=== PATIENT | male | born 1990 | race Caucasian/White ===

== ENCOUNTER → 2018-07-02 10:26 | Outpatient (CLI) | payer BC, SELFPAY ==
--- NOTE | 2018-07-02 10:32 | XR_ITS ---
XR chest 2V HISTORY: ITS.REASON: ASTHMA,DYSPNEA ORDERING PHYSICIAN: Eduard Lutz MD PATIENT AGE: 28 years COMPARISON: None FINDINGS: The cardiomediastinal silhouette and pulmonary vascularity are within normal limits. The lungs are clear without infiltrates, suspicious nodules, or pleural effusions. No acute bony abnormalities. There is mild lower thoracic curvature convex left IMPRESSION: Negative chest, no acute finding
== END ==
PROVIDERS: PCP Family Medicine; Visit Provider Family Medicine
DX: J45.909 Unspecified asthma, uncomplicated (principal); R06.09 Other forms of dyspnea
CPT/HCPCS: 71046

== ENCOUNTER → 2018-07-10 14:52 | Outpatient (CLI) | payer BC, SELFPAY ==
--- NOTE | 2018-07-10 | CA_ITS ---
PROCEDURE: 2-D M-mode and color Doppler study INDICATIONS FOR THE TEST: Chest pain COPD Heart Murmur+ Tobacco Smoking Palpitations Fatigue Syncope Edema Hypertension Diabetes Mellitus Rheumatic Fever SOB MIRZA+Obesity Hyperlipidemia Family History HD Additional History PATIENT INFORMATION HEIGHT: 74 WEIGHT:235 GENDER: Male B/P:110/67 2-D/M-MODE INTERPRETATION: 2-D MEASUREMENTS OBSERVED VALUES IN CMS Right Ventricular Dimension (RVDd) 2.1 Interventricular Septum (Thickness)(IVsd) 1.0 Left Ventricular Internal Dimensions(LVIDd) 4.9 Left Ventricular Posterior Wall (Thickness)(LVPWd) 0.9 Aortic Root 2.8 Aortic Cusp Separation 2.2 Left Atrial Dimensions (LAD) 3.6 2D 1. Left atrium is normal size, left ventricle is normal size, there is no concentric left ventricular hypertrophy, visually estimated ejection fraction 55% with no regional wall motion abnormality. 2. The right atrium and right ventricle are normal size and contractility. 3. The aortic valve is minimally thickened and fibrosed, aortic valve is trileaflet, there is no aortic stenosis. 4. The mitral and tricuspid valve are grossly normal. 5. The pulmonic valve is poorly present. 6. No significant pericardial effusion noted. DOPPLER INTERROGATION: Doppler interrogation of the aortic, mitral and tricuspid valve is presence of mild aortic, mild mitral and tricuspid regurgitation, tricuspid regurgitation jet velocity is inadequate for calculation of the right ventricular systolic pressure, diastolic parameters are inconclusive. CONCLUSION: 1. Normal left ventricular size, preserved left ventricular systolic function, visually estimated ejection fraction of 55% with no regional wall motion abnormality, diastolic parameters are inconclusive. 2. Mild aortic, mild mitral and tricuspid regurgitation 3. No significant pericardial effusion noted.
== END ==
PROVIDERS: PCP Family Medicine; Visit Provider Family Medicine
DX: R06.09 Other forms of dyspnea (principal); R01.1 Cardiac murmur, unspecified
CPT/HCPCS: 93306

== ENCOUNTER 2021-12-08 22:23 | Emergency (ER) | payer BC, SELFPAY ==
[2021-12-08 22:24] VITALS: BP 149/94; PULSE 76; RESP 17; TEMP 36.6; O2SAT 99; BMI 31.4
--- NOTE | 2021-12-08 22:46 | CT_ITS ---
PROCEDURE INFORMATION: Exam: CT Abdomen And Pelvis Without Contrast Exam date and time: 12/08/2021 10:49 PM Age: 31 years old Clinical indication: Abdominal pain; Flank; Left; Additional info: L flank pain, HX stone TECHNIQUE: Imaging protocol: Computed tomography of the abdomen and pelvis without contrast. Radiation optimization: All CT scans at this facility use at least one of these dose optimization techniques: automated exposure control; mA and/or kV adjustment per patient size (includes targeted exams where dose is matched to clinical indication); or iterative reconstruction. COMPARISON: [facility] abdomen pelvis wo con 08/10/2017 2:31 AM FINDINGS: Liver: No acute findings. No mass. Gallbladder and bile ducts: No acute findings, calcified stones or ductal dilation. Pancreas: No acute findings, focal abnormality or ductal dilation. Spleen: No splenomegaly or focal abnormality. Adrenal glands: Normal. No mass. Kidneys and ureters: There is a 3 mm calculus in the upper left ureter with minimal relative proximal hydroureter. Stomach and bowel: No obstruction. No mucosal thickening. Appendix: No evidence of appendicitis. Intraperitoneal space: No free air. No significant fluid collection. Vasculature: No abdominal aortic aneurysm. Lymph nodes: No pathologically enlarged lymph nodes. Urinary bladder: Unremarkable as visualized. Reproductive: Unremarkable as visualized. Bones/joints: No acute fracture. Soft tissues: Small uncomplicated fat containing right inguinal hernia. IMPRESSION: 3 mm calculus in the upper left ureter with minimal obstructive uropathy.
--- NOTE | 2021-12-08 22:49 | HMH.EDABDPAI ---
Discharge Plan Disposition Patient Disposition: Home, Self-Care Prescriptions Prescriptions: New tamsulosin [Flomax] 0.4 mg capsule 0.4 mg PO DAILY Qty: 10 0RF No Action cetirizine 10 mg tablet 10 mg PO DAILY montelukast 10 mg tablet 10 mg PO DAILY albuterol sulfate 90 mcg/actuation HFA aerosol inhaler 2 puff INHALATION Q6HP PRN (Reason: shortness of breath, wheezing) Referrals Follow up/Referrals: Araceli Sorensen APRN [Primary Care Provider] - See instructions Clinical Impressions Clinical Impression: Renal colic on left side Instructions Patient Instructions: DI for Kidney Stones Discharge ED Provider: Javier Johnson Abdominal Pain HPI General Chief Complaint: Abdominal Pain Stated Complaint: ADM PAIN POSS KIDNEY STONES Time Seen by Provider: 12/08/21 22:49 Mode of Arrival: Family Vehicle Source of Information: Patient and Medical Record Limitations: No Limitations Description of Symptoms (Recalled from ER Triage Doc. by RN): Pt c/o pain that began in L lower abd and radiated to L flank and began suddenly at 2130. He reports he has a stones in the past and it feels like this. Denies any fever, chills, or diarrhea. He does report nausea. Pt reports at this time, the pain is almost gone but I still want checked out . History of Present Illness HPI narrative: acute lt upper abd/flank tonight complaint: flank pain Onset (ago): hour(s) Consistency: intermittent Severity: moderate Radiation: L flank Related Data Home Medications Medication Instructions Recorded Confirmed albuterol sulfate 90 mcg/actuation 2 puff inhalation Q6HP PRN 12/08/21 12/08/21 aerosol inhaler shortness of breath, wheezing cetirizine 10 mg tablet 10 mg PO DAILY Allergy symptoms 12/08/21 12/08/21 montelukast 10 mg tablet 10 mg PO DAILY Allergy symptoms 12/08/21 12/08/21 Previous Rx's Medication Instructions Recorded tamsulosin 0.4 mg capsule (Flomax) 0.4 mg PO DAILY #10 caps 12/08/21 Allergies Allergy/AdvReac Type Severity Reaction Status Date / Time amoxicillin [AMOXICILLIN] Allergy Intermediate I-RASH Verified 04/01/18 00:04 minocycline [MINOCYCLINE] Allergy Intermediate I-HIVES Verified 04/01/18 00:04 cefaclor [CEFACLOR] AdvReac Mild NA-DIARRHEA Verified 04/01/18 00:04 PFSH PFS Social History Smoking Status: Never smoker alcohol intake: current 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avel in the last 8 weeks: Outside the [facility] ROS Obtained: Yes All systems reviewed & no additional complaints except as documented Physical Exam General General appearance: alert and in no apparent distress Head Head exam: normocephalic Eye Eye exam: Present PERRL and EOMI ENT ENT exam: Present mucous membranes moist Neck Neck exam: Present trachea midline Respiratory Respiratory exam: Absent respiratory distress Cardiovascular Cardiovascular exam: Present regular rate Abdominal Exam Abdominal exam: Present soft Extremities Exam Extremities exam: Present full ROM Neurological Exam Neurological exam: Present alert, oriented X3 and CN II-XII intact Psychiatric Psychiatric exam: Present normal affect Skin Skin exam: Absent rash Medical Decision Making Medical Records Medical records reviewed: Yes I reviewed the patient's medical records. Jesús Inquiry Pt receiving controlled substance: No Vital Signs: 12/08/21 22:24 Temperature 97.8 F Temperature Source Oral Pulse Rate [Right] 76 Respiratory Rate 17 Blood Pressure [Right Arm] 149/94 H Blood Pressure Mean [Right Arm] 112 02 Sat by Pulse Oximetry 99 Oxygen Delivery Method Room Air Lab Data Lab results reviewed: Yes I reviewed the patient's lab results. Lab Results 12/08/21 22:46: ESR 20 H 12/08/21 22:46: C-Reactive Protein 5.6 H, Amylase 64, Procalcitonin 0.083 12/08/21 22:46: Urine Color Brown, Urine Appearance Cloudy, Urine pH 5.5, Ur Specific [place] >= 1.030, Urine Protein 2+, Urine
[2021-12-08 22:55] LABS: Microscopic, Urine URINE MICROSCOPIC (MICROSCOPIC)
[2021-12-08 22:57] LABS: Basophils # 0.1 K/mm3 (0-0.2); Basophils % 0.9 % (0.1-2.0); Eosinophils # 0.1 K/mm3 (0.0-0.4); Eosinophils % 1.7 % (0.1-12.0); Hematocrit 43.5 % (42.0-52.0); Hemoglobin 13.8 g/dL (14.1-18.0); Lymphocytes # 2.3 K/mm3 (0.7-4.5); Lymphocytes % 30.2 % (10-50); Mean Corpuscular HGB Conc 31.7 g/dL (31.8-35.4); Mean Corpuscular Hemoglobin 30.4 pg (27.0-31.2); Mean Corpuscular Volume 95.8 fl (80-94); Mean Platelet Volume 8.5 fl (7.4-10.4); Monocytes # 0.5 K/mm3 (0.1-1.0); Monocytes % 6.8 % (1.7-9.3); Neutrophils # 4.5 K/mm3 (1.8-7.8); Neutrophils % 60.4 % (37.0-80.0); Platelet Count 225 K/mm3 (142-424); Red Blood Count 4.54 M/mm3 (4.60-6.20); Red Cell Distribution Width 13.7 % (11.5-17.5); White Blood Count 7.5 K/mm3 (4.8-10.8)
[2021-12-08 22:58] LABS: Appearance,Urine CLOUDY (Clear); Blood, Urine 3+ (Negative); Color,Urine BROWN (Yellow); Glucose,Urine (UA) Negative (Negative); Ketones,Urine Negative (Negative); Leukocyte Esterase,Urine Negative (Negative); Nitrate,Urine Negative (Negative); PH,Urine 5.5 (5.0-8.5); Protein,Urine 2+ (Negative); Specific Gravity, Urine >= 1.030 (1.005-1.030)
[2021-12-08 23:00] LABS: Bilirubin,Urine 1+ (Negative)
[2021-12-08 23:03] LABS: RBC,Urine TNTC #/hpf (0-3)
[2021-12-08 23:04] LABS: Amylase 64 U/L (30-110); Bacteria,Urine Trace /lpf
[2021-12-08 23:05] LABS: Alanine Aminotransferase 28 U/L (12-78); Albumin Level 4.5 g/dl (3.5-5.0); Albumin/Globulin Ratio 1.5 (1.1-1.8); Alkaline Phosphatase 89 U/L (38-126); Anion Gap 12.9 mEq/L (5-15); Aspartate Amino Transferase 31 U/L (17-59); Bilirubin,Total 0.3 mg/dl (0.2-1.3); Blood Urea Nitrogen 19 mg/dl (9-20); Calcium 9.5 mg/dl (8.4-10.2); Carbon Dioxide 26 mmol/L (22.0-30.0); Chloride 105 mmol/L (98-107); Creatinine Clearance Estimated 127 mL/min (50-200); Estimated Glomerular Filt Rate 64 ml/min (>60); GFR (African American) 77 ML/MIN (>60); Globulin 3.1 g/dL (1.3-3.2); Glucose 109 mg/dl (74-100); Lipase 103 U/L (23-300); Potassium 3.9 mmoL/L (3.5-5.1); Sodium 140 mmol/L (136-145); Total Protein,Serum 7.6 g/dl (6.3-8.2)
[2021-12-08 23:09] LABS: C-Reactive Protein 5.6 mg/L (0-4)
[2021-12-08 23:21] LABS: Erythrocyte Sedimentation Rate 20 mm/hr (0-15)
[2021-12-08 23:23] LABS: Procalcitonin 0.083 ng/mL (0.0-2.0)
[2021-12-08 23:56] VITALS: BP 123/78; PULSE 78; RESP 18; TEMP 36.6; O2SAT 99
== END 2021-12-09 00:08 | disposition home or self-care (01) ==
PROVIDERS: Emergency Provider Emergency Medicine; PCP Nurse Practitioner Family
DX: N20.1 Calculus of ureter (principal); Z79.899 Other long term (current) drug therapy; Z88.1 Allergy status to other antibiotic agents
CPT/HCPCS: 74176; 80053; 81001; 82150; 83690; 84145; 85025; 85651; 86140; 96365; 96375; 96376; 99284; J2405

== ENCOUNTER 2021-12-09 09:01 | Emergency (ER) | payer BC, SELFPAY ==
[2021-12-09 09:03] VITALS: BP 139/87; PULSE 67; RESP 20; TEMP 36.7; O2SAT 100; BMI 33.0
[2021-12-09 09:09] VITALS: BP 139/83; PULSE 68; O2SAT 100
[2021-12-09 09:17] VITALS: BMI 33.0
--- NOTE | 2021-12-09 09:24 | PC.NURSE ---
after medicated pt sleeping at bs
[2021-12-09 09:43] LABS: Basophils # 0.1 K/mm3 (0-0.2); Basophils % 1.2 % (0.1-2.0); Eosinophils # 0.1 K/mm3 (0.0-0.4); Eosinophils % 0.5 % (0.1-12.0); Hematocrit 43.4 % (42.0-52.0); Hemoglobin 13.7 g/dL (14.1-18.0); Lymphocytes # 1.3 K/mm3 (0.7-4.5); Lymphocytes % 14.6 % (10-50); Mean Corpuscular HGB Conc 31.6 g/dL (31.8-35.4); Mean Corpuscular Volume 98.1 fl (80-94); Mean Platelet Volume 9.1 fl (7.4-10.4); Monocytes # 0.5 K/mm3 (0.1-1.0); Monocytes % 6.2 % (1.7-9.3); Neutrophils # 6.7 K/mm3 (1.8-7.8); Neutrophils % 77.5 % (37.0-80.0); Platelet Count 223 K/mm3 (142-424); Red Blood Count 4.42 M/mm3 (4.60-6.20); Red Cell Distribution Width 13.9 % (11.5-17.5); White Blood Count 8.7 K/mm3 (4.8-10.8)
[2021-12-09 09:44] LABS: Chloride 106 mmol/L (98-107); Potassium 3.9 mmoL/L (3.5-5.1); Sodium 142 mmol/L (136-145)
[2021-12-09 09:47] LABS: Alanine Aminotransferase 29 U/L (12-78); Albumin Level 4.8 g/dl (3.5-5.0); Albumin/Globulin Ratio 1.5 (1.1-1.8); Alkaline Phosphatase 90 U/L (38-126); Anion Gap 14.9 mEq/L (5-15); Aspartate Amino Transferase 36 U/L (17-59); Bilirubin,Total 0.6 mg/dl (0.2-1.3); Blood Urea Nitrogen 18 mg/dl (9-20); Calcium 9.7 mg/dl (8.4-10.2); Carbon Dioxide 25 mmol/L (22.0-30.0); Creatinine Clearance Estimated 120 mL/min (50-200); Estimated Glomerular Filt Rate 58 ml/min (>60); GFR (African American) 71 ML/MIN (>60); Globulin 3.1 g/dL (1.3-3.2); Glucose 119 mg/dl (74-100); Total Protein,Serum 7.9 g/dl (6.3-8.2)
--- NOTE | 2021-12-09 09:52 | PC.NURSE ---
ED MD AT BEDSIDE FOR EVALUATION
--- NOTE | 2021-12-09 09:56 | HMH.EDGENADL ---
Discharge Plan Disposition Patient Disposition: Home, Self-Care Condition: Good Prescriptions Prescriptions: New oxycodone-acetaminophen [Percocet] 7.5-325 mg tablet 1 tab PO Q6H PRN (Reason: pain) Qty: 14 0RF ketorolac 10 mg tablet 10 mg PO Q6H PRN (Reason: moderate pain ) Qty: 10 0RF ondansetron 4 mg tablet,disintegrating 4 mg PO TID PRN (Reason: Nausea And Vomiting) Qty: 10 0RF No Action cetirizine 10 mg tablet 10 mg PO DAILY montelukast 10 mg tablet 10 mg PO DAILY albuterol sulfate 90 mcg/actuation HFA aerosol inhaler 2 puff INHALATION Q6HP PRN (Reason: shortness of breath, wheezing) tamsulosin [Flomax] 0.4 mg capsule 0.4 mg PO DAILY Qty: 10 0RF Referrals Follow up/Referrals: Araceli Sorensen APRN [Primary Care Provider] - See instructions Delfin Soler MD [Staff Physician] - See instructions Activity Restrictions/Add. Instructions Additional Instructions/Restrictions: Flomax as prescribed. Percocet and Toradol as needed for pain. Zofran as needed for nausea. Additional instructions for KIDNEY STONE (URETERAL CALCULUS): See Dr. Soler as soon as possible for further evaluation. Drink plenty of fluids. Strain your urine and save any stones you catch. Return immediately if you develop a fever or have uncontrollable vomiting or uncontrollable pain. Clinical Impressions Clinical Impression: Calculus, ureteral Instructions Patient Instructions: DI for Urinary Tract Infection (UTI), DI for Urinary Tract Infection in Children Discharge ED Provider: Elton Vega General Adult HPI General Chief complaint: Urogenital-Male Stated complaint: back and side pain Time Seen by Provider: 12/09/21 09:50 Mode of Arrival: Ambulatory Limitations: No Limitations Description of Symptoms (Recalled from ER Triage Doc. by RN): PT SEEN FOR KIDNEY STONE LAST NIGHT, RETURNS WITH INCREASED LEFT SIDED, FLANK AND GROIN PAIN. CHILLS AND NAUSEA. History of Present Illness HPI narrative: Patient was seen in the emergency department last night for left-sided flank pain. CT scan showed left ureteral calculus. He was discharged with a Tylenol 3 take-home pack, developed vomiting and has not been able to hold this down. He has left flank pain and abdominal pressure, pressure into his groin. He was given a leftover Zofran and Percocet prior to arrival. He has been medicated prior to my evaluation and says that he now has no significant discomfort, just an occasional twinge of pain in his flank. He was prescribed Flomax but has not had a chance to fill it yet. He was given a dose in the emergency department. He has had prior kidney stones, has never required procedural intervention. Related Data Home Medications Medication Instructions Recorded Confirmed albuterol sulfate 90 mcg/actuation 2 puff inhalation Q6HP PRN 12/08/21 12/08/21 aerosol inhaler shortness of breath, wheezing cetirizine 10 mg tablet 10 mg PO DAILY Allergy symptoms 12/08/21 12/08/21 montelukast 10 mg tablet 10 mg PO DAILY Allergy symptoms 12/08/21 12/08/21 Previous Rx's Medication Instructions Recorded tamsulosin 0.4 mg capsule (Flomax) 0.4 mg PO DAILY #10 caps 12/08/21 ketorolac 10 mg tablet 10 mg PO Q6H PRN moderate pain 12/09/21 #10 tabs ondansetron 4 mg disintegrating 4 mg PO TID PRN Nausea And 12/09/21 tablet Vomiting #10 tabs oxycodone-acetaminophen 7.5 mg-325 1 tab PO Q6H PRN pain #14 tabs 12/09/21 mg tablet (Percocet) Allergies Allergy/AdvReac Type Severity Reaction Status Date / Time amoxicillin [AMOXICILLIN] Allergy Intermediate I-RASH Verified 04/01/18 00:04 minocycline [MINOCYCLINE] Allergy Intermediate I-HIVES Verified 04/01/18 00:04 cefaclor [CEFACLOR] AdvReac Mild NA-DIARRHEA Verified 04/01/18 00:04 [facility] Social History (Updated 12/09/21 @ 09:21 by Vannessa Ramesh RN) Smoking Status: Never smoker alcohol intake: current 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
[2021-12-09 10:00] VITALS: BP 133/79; PULSE 71; RESP 18; O2SAT 92
--- NOTE | 2021-12-09 10:26 | PC.NURSE ---
ROUNDED ON PT, MORE COMFORTABLE AT THIS TIME.
[2021-12-09 10:30] VITALS: BP 121/80; PULSE 75; O2SAT 89
--- NOTE | 2021-12-09 10:35 | PC.NURSE ---
pt being D/C but states pain and nausea are coming back , new orders given prior to D/C
--- NOTE | 2021-12-09 10:43 | PC.NURSE ---
pt had approx 50 ml dark yellow urine
[2021-12-09 10:55] VITALS: BP 121/80; PULSE 83; RESP 20; TEMP 36.8; O2SAT 95
== END 2021-12-09 10:55 | disposition home or self-care (01) ==
PROVIDERS: Emergency Provider Emergency Medicine; PCP Nurse Practitioner Family
DX: N20.1 Calculus of ureter (principal); M54.9 Dorsalgia, unspecified; R06.02 Shortness of breath; Z79.51 Long term (current) use of inhaled steroids; Z79.899 Other long term (current) drug therapy; Z88.0 Allergy status to penicillin; Z88.1 Allergy status to other antibiotic agents; Z88.3 Allergy status to other anti-infective agents; Z88.8 Allergy status to other drugs, medicaments and biological substances
CPT/HCPCS: 80053; 85025; 96374; 96375; 96376; 99285; J2405

== ENCOUNTER 2022-03-19 14:17 | Emergency (ER) | payer BC, SELFPAY ==
[2022-03-19] VITALS (7 sets, daily range): BP systolic 121–135; BP diastolic 76–85; PULSE 83–106; RESP 16–20; TEMP 36.6–36.7; O2SAT 95–99; BMI 32.1
[2022-03-19 15:08] LABS: Coronavirus 19, PCR Not Detected (NotDetected); Influenza A, PCR Not Detected (NotDetected); Influenza B, PCR Not Detected (NotDetected)
--- NOTE | 2022-03-19 15:46 | HMH.EDGENADL ---
Discharge Plan Disposition Patient Disposition: Home, Self-Care Condition: Good Prescriptions Prescriptions: New ondansetron 4 mg tablet,disintegrating 4 mg PO Q8H PRN (Reason: nausea and vomiting) 4 Days Qty: 12 0RF No Action oxycodone-acetaminophen [Percocet] 7.5-325 mg tablet 1 tab PO Q6H PRN (Reason: pain) Qty: 14 0RF ketorolac 10 mg tablet 10 mg PO Q6H PRN (Reason: moderate pain ) Qty: 10 0RF ondansetron 4 mg tablet,disintegrating 4 mg PO TID PRN (Reason: Nausea And Vomiting) Qty: 10 0RF cetirizine 10 mg tablet 10 mg PO DAILY montelukast 10 mg tablet 10 mg PO DAILY albuterol sulfate 90 mcg/actuation HFA aerosol inhaler 2 puff INHALATION Q6HP PRN (Reason: shortness of breath, wheezing) tamsulosin [Flomax] 0.4 mg capsule 0.4 mg PO DAILY Qty: 10 0RF Referrals Follow up/Referrals: Araceli Sorensen APRN [Primary Care Provider] - See instructions Activity Restrictions/Add. Instructions Additional Instructions/Restrictions: You were evaluated in the emergency department today for nausea and vomiting. At this time, we feel that this is related to a viral illness. 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 Orally hydrate at home is much as possible. Follow-up with your primary care provider over the next 48 hours. Return to the emergency department for any new or worsening symptoms. Clinical Impressions Clinical Impression: Gastroenteritis Instructions Patient Instructions: DI for Diarrhea and Traveler's Diarrhea -- Adult, DI for Nausea -- Adult Discharge ED Provider: Amy Landry General Adult HPI General Chief complaint: Nausea/Vomiting/Diarrhea Stated complaint: Fever, bodyaches, vomitting, diarreah Time Seen by Provider: 03/19/22 14:57 Mode of Arrival: Ambulatory Source of Information: Patient Limitations: No Limitations Description of Symptoms (Recalled from ER Triage Doc. by RN): c/o vomiting and diarrhea. Pt states he thinks his and 9 month old son has it but he thinks he is getting dehyrated from this morning when symptoms started. States he gets cold and then hot and then has to go to the bathroom History of Present Illness HPI narrative: This patient is a 31-year-old male who denies significant past medical history presenting to the emergency department for evaluation of nausea and vomiting. He reports that his son and at home also have similar symptoms. His symptoms started this morning. Emesis is nonbloody and nonbilious. He has not taken any medications to alleviate the symptoms. He denies any abdominal pain or other associated symptoms. He does admit to diarrhea. Related Data Home Medications Medication Instructions Recorded Confirmed albuterol sulfate 90 mcg/actuation 2 puff inhalation Q6HP PRN 12/08/21 12/08/21 aerosol inhaler shortness of breath, wheezing cetirizine 10 mg tablet 10 mg PO DAILY Allergy symptoms 12/08/21 12/08/21 montelukast 10 mg tablet 10 mg PO DAILY Allergy symptoms 12/08/21 12/08/21 Previous Rx's Medication Instructions Recorded tamsulosin 0.4 mg capsule (Flomax) 0.4 mg PO DAILY #10 caps 12/08/21 ketorolac 10 mg tablet 10 mg PO Q6H PRN moderate pain 12/09/21 #10 tabs ondansetron 4 mg disintegrating 4 mg PO TID PRN Nausea And 12/09/21 tablet Vomiting #10 tabs oxycodone-acetaminophen 7.5 mg-325 1 tab PO Q6H PRN pain #14 tabs 12/09/21 mg tablet (Percocet) ondansetron 4 mg disintegrating 4 mg PO Q8H PRN nausea and 03/19/22 tablet vomiting 4 days #12 tabs Allergies Allergy/AdvReac Type Severity Reaction Status Date / Time amoxicillin [AMOXICILLIN] Allergy Intermediate I-RASH Verified 04/01/18 00:04 minocycline [MINOCYCLINE] Allergy Intermediate I-HIVES Verified 04/01/18 00:04 cefaclor [CEFACLOR] AdvReac Mild NA-DIARRHEA Verified 04/01/18 00:04 [facility] Disclaimer: The information contained in this section may have been updated
--- NOTE | 2022-03-19 16:29 | PC.NURSE ---
pt requesting blankets
== END 2022-03-19 18:20 | disposition home or self-care (01) ==
LOC: UTC 14:18 → ER 14:50
PROVIDERS: Emergency Provider Emergency Medicine; PCP Nurse Practitioner Family
DX: R11.2 Nausea with vomiting, unspecified (principal); R19.7 Diarrhea, unspecified; R50.9 Fever, unspecified; M79.10 Myalgia, unspecified site; Z20.822 Contact with and (suspected) exposure to COVID-19; Z79.1 Long term (current) use of non-steroidal anti-inflammatories (NSAID); Z79.51 Long term (current) use of inhaled steroids; Z79.899 Other long term (current) drug therapy; Z88.0 Allergy status to penicillin; Z88.1 Allergy status to other antibiotic agents; Z88.3 Allergy status to other anti-infective agents; Z88.8 Allergy status to other drugs, medicaments and biological substances
CPT/HCPCS: 96374; 96376; 99284; C9803; J2405; U0003; U0005

== ENCOUNTER → 2023-01-01 01:10 | Outpatient (CLI) | payer BC, SELFPAY | PROVIDERS: PCP Student in an Organized Health Care Education/Training Program; Visit Provider Student in an Organized Health Care Education/Training Program | DX: R50.9 Fever, unspecified (principal); R05.9 Cough, unspecified; R09.81 Nasal congestion | CPT/HCPCS: 87635 ==